=== PATIENT | male | born 2000 | race Caucasian/White ===

== ENCOUNTER 2021-10-14 13:00 | Emergency (ER) | payer OTHER, SELFPAY ==
[2021-10-14 13:10] VITALS: BP 131/89; RESP 18; TEMP 37.1; O2SAT 95; BMI 34.9
--- NOTE | 2021-10-14 13:29 | CRLHL7_ITS ---
For Patients: As a result of the Cures Act, medical imaging exams and procedure reports are released immediately into your electronic medical record. You may view this report before your referring provider. If you have questions, please contact your health care provider. Indication: Fall Comparison: None available. Technique: AP, lateral, and oblique views right elbow were obtained. Findings: There is no displaced fracture or dislocation. The joint spaces are grossly preserved. There is marked olecranon soft tissue swelling. Impression: Marked olecranon soft tissue swelling without evidence of displaced fracture. Dictated by Tony Baxter MD @ 10/14/2021 3:19:59 PM (Electronically Signed)
--- NOTE | 2021-10-14 13:29 | ED.UPPEXIN ---
HPI - Extremity Injury (Upper) General Date Seen: 10/14/21 Chief Complaint: Extremity Pain/Injury, Upper Stated Complaint: Fell, hurt right arm Time Seen by Provider: 10/14/21 13:18 Source: patient Mode of arrival: ambulatory Limitations: no limitations History of Present Illness HPI narrative: Patient is very nice 21-year-old gentleman presents here with an elbow injury. This occurred approximately 3-4 hours before being seen he was loading something in the back of his pickup when he fell backwards and will striking his right elbow on the ground. He was able to get up and moving around normally but progressively it has got more sore over the course of the 2 hours. It is a little bit more swollen. Put a Band-Aid on there but other than has done nothing. Did take some ibuprofen before coming in. No previous history of elbow injury denies any other injury to his shoulder wrist neck head or head. Denies any numbness tingling weakness any nausea vomiting or other issues. Is right-handed. Related Data Home Medications Medication Instructions Recorded Confirmed cetirizine 10 mg capsule (Zyrtec) 10 mg PO DAILY PRN 10/14/21 10/14/21 Allergies Allergy/AdvReac Type Severity Reaction Status Date / Time Penicillins Allergy Verified 10/14/21 13:10 Review of Systems Status of ROS: Reports: 10 or more systems reviewed and unremarkable except as noted in History and below PFSH FOR[facility] Social History Smoking Status: Never smoker Do you use any of these nicotine containing products: None How often do you have a drink containing alcohol: monthly or less How often do you have six or more drinks on one occasion: Never AUDIT-C Alcohol total score: 1 Non-prescribed substance use: denies use Exam Narrative: Exam Narrative: Patient is no apparent distress delightful. He is able to extend his elbow fully through full range of motion in flexion extension supination pronation the wrist has normal range of motion also his cap refill is normal as radial and brachial pulses are normal shoulder has full range of motion of flexion extension internal external rotation and no tenderness is noted along his clavicle on the right side. Cervical spine is full range of motion of flexion extension lateral flexion and rotation also. There is no C-spine tenderness noted. He does have 2 small abrasions over his elbow. With a little bit of swelling over his olecranon. Const: Vital Signs, click to edit/add: Vital Signs - 24 hr 10/14/21 13:10 10/14/21 16:16 Temperature 98.8 F Respiratory Rate 18 18 Blood Pressure [Ri ght Upper Arm] 131/89 Pulse Oximetry 95 Documenting provider has reviewed patient's vital signs: yes Course Course Hospital Course: Patient is seen and assessed. We did do x-rays of his right elbow showing no evidence of fracture these were over-read by Radiology in agreement. There is 2 small abrasions and bacitracin was applied and we did update his tetanus status at this point. Vital Signs Vital signs: Initial Vital Signs Temperature 98.8 F 10/14/21 13:10 Temperature Source Temporal Artery Scan 10/14/21 13:10 Respiratory Rate 18 10/14/21 13:10 Blood Pressure 131/89 10/14/21 13:10 Blood Pressure Mean 103 10/14/21 13:10 Blood Pressure Position Sitting 10/14/21 13:10 Pulse Oximetry 95 10/14/21 13:10 Oxygen Delivery Method 10/14/21 13:10 Vital Signs Temperature 98.8 F 10/14/21 13:10 Respiratory Rate 18 10/14/21 13:10 Blood Pressure 131/89 10/14/21 13:10 Pulse Oximetry 95 10/14/21 13:10 Temperature 98.8 F 10/14/21 13:10 Respiratory Rate 18 10/14/21 16:16 Blood Pressure 131/89 10/14/21 13:10 Pulse Oximetry 95 10/14/21 13:10 Discharge Plan Discharge Clinical Impression: Contusion of elbow, Abrasion Patient Disposition: Home w/ Parent or Adult Condition: Stable Instructions: Contusion in Adults (ED), Bone Bruise (ED) Additional Instructions: Home rest use of bacitracin on the wound activity as tolerated. If increasing swelling redness or other issue then to come back and be seen. No fracture seen on x-ray. Activity Level: No Restrictions Discharge Diet: Regular Prescriptions: No Action Zyrtec 10 mg capsule 10 mg PO DAILY [id number] Follow Up/Referrals: Provider,Not a Local [Primary Care Provider] - Stand Alone Forms: First Coverage Info Instructions
[2021-10-14] MEDS: ACETAMINOPHEN 325 MG TABLET 650 MG PO (13:42)
[2021-10-14] MEDS: TETANUS/DIPHTH/PERTUSSIS 0.5 ML SYRINGE IM (16:09)
[2021-10-14 16:16] VITALS: RESP 18
== END 2021-10-14 16:17 | disposition home or self-care (01) ==
PROVIDERS: Emergency Provider Family Medicine
DX: S50.311A Abrasion of right elbow, initial encounter (principal)
CPT/HCPCS: 73080; 90471; 90715; 99283; A9270